=== PATIENT | male | born 1975 | race Caucasian/White ===

== ENCOUNTER 2020-02-15 20:30 | Emergency (ER) | payer MEDICARE, SELFPAY ==
[2020-02-15 20:55] VITALS: BP 148/94; PULSE 78; RESP 20; TEMP 37.1; O2SAT 98
--- NOTE | 2020-02-15 21:38 | ED.DENTAL ---
HPI - Dental/Oral General Chief complaint: Dental/Oral Stated complaint: swelling in face Source: patient and family Mode of arrival: ambulatory Limitations: no limitations History of Present Illness HPI Narrative: Pt presents with complaints of facial pain and swelling pt has toothache. Started on Amox today, but pt had facial swelling increasing. He wasnt sure why his face was swelling. He has no fevers chills or nausea, otherwise he feels fine. Complaint: tooth pain Onset (ago): day(s) Duration: constant Severity: moderate Relieving factors: prescription analgesics Context: history of dental caries and poor dental care Associated symptoms: gum swelling Treatment prior to arrival: none Related Data Home Medications Medication Instructions Recorded Confirmed amoxicillin 500 mg PO BID 02/15/20 02/15/20 glimepiride 2 mg PO DAILY 02/15/20 02/15/20 metformin 1,000 mg PO BID 02/15/20 02/15/20 metoprolol succinate 25 mg PO DAILY 02/15/20 02/15/20 morphine 30 mg PO DAILY 02/15/20 02/15/20 naproxen 500 mg PO DIRECTED PRN 02/15/20 02/15/20 simvastatin 40 mg PO DAILY 02/15/20 02/15/20 Allergies Allergy/AdvReac Type Severity Reaction Status Date / Time bee venom protein (honey bee) Allergy Unknown Verified 02/15/20 21:23 [bees] Review of Systems Review of Systems: All systems reviewed & are unremarkable except as noted in HPI and below PMFSH Past Medical History Medical History (Updated 02/15/20 @ 21:45 by Sulma Brody MD) Back pain Social History Social History (Updated 02/15/20 @ 21:46 by Sulma Brody MD) Smoking status: Current every day smoker Alcohol intake: current Alcohol use details: occasional Substance use: never Exam Const: General: no acute distress Nutritional Appearance: well nourished Orientation/consciousness: patient oriented x3 HENMT: Head: normal to inspection Mouth: Yes moist mucous membranes Teeth and gingiva: dentition normal (dental abscess, some swelling, but no spot available for drainage) Throat: posterior oropharynx normal Eyes: Conjunctivae: conjunctivae normal Pupils: Equal, round and reactive pupils present Neck: Neck: normal visual inspection Chest: Chest palpation & inspection: normal inspection of the chest Resp: Effort & Inspection: normal respiratory effort Back/Spine/Pelvis: Back: no CVA tenderness Skin: General skin exam: normal color Rashes: no rashes Neuro: General: patient oriented x3, moves all extremities and CN's II-XI intact bilaterally Speech: normal speech Gait exam (Neuro): Normal gait present Extrem: General: normal to inspection Psych: Appearance: grossly normal Mental Status: mental status grossly normal Thought content: Yes Normal thought content present Course Vital Signs Vital signs: Vital Signs Temperature 37.1 C 02/15/20 20:55 Pulse Rate 78 02/15/20 20:55 Respiratory Rate 20 02/15/20 20:55 Blood Pressure 148/94 H 02/15/20 20:55 Pulse Oximetry 98 02/15/20 20:55 Temperature 37.1 C 02/15/20 20:55 Pulse Rate 78 02/15/20 20:55 Respiratory Rate 20 02/15/20 20:55 Blood Pressure 148/94 H 02/15/20 20:55 Pulse Oximetry 98 02/15/20 20:55 MDM - Dental/Oral Differential Diagnosis Differential diagnosis: Likely dental abscess Critical Care Time Critical Care Time Critical Care Time: No Discharge Plan Discharge Clinical Impression: Dental abscess Patient Disposition: Home, Self-Care Condition: Stable Instructions: Antibiotic Form, Dental Abscess (ED) Additional Instructions: Use the [email or web address] dental kit for pain Prescriptions: No Action amoxicillin 500 mg capsule 500 mg PO BID RF: 0 morphine 30 mg tablet extended release 30 mg PO DAILY RF: 0 simvastatin 40 mg tablet 40 mg PO DAILY RF: 0 glimepiride 2 mg tablet 2 mg PO DAILY RF: 0 metformin 1,000 mg tablet 1,000 mg PO BID RF: 0 metoprolol succinate 25
== END 2020-02-15 21:44 | disposition home or self-care (01) ==
PROVIDERS: Emergency Provider Emergency Medicine
DX: K04.7 Periapical abscess without sinus (principal)
CPT/HCPCS: 99281; 99282

== ENCOUNTER 2020-03-21 12:10 | Outpatient (CLI) | payer MEDICARE, SELFPAY ==
[2020-03-21 12:58] LABS: SARS-CoV-2 Ag Negative (Negative)
== END 2020-03-21 12:11 | disposition home or self-care (01) ==
LOC: CHSLAB 12:12
PROVIDERS: PCP Family Medicine; Visit Provider Family Medicine
DX: Z20.828 Contact with and (suspected) exposure to other viral communicable diseases (principal)
CPT/HCPCS: 87426

== ENCOUNTER 2020-06-12 07:34 | Outpatient (CLI) | payer MEDICARE, SELFPAY ==
[2020-06-12 07:51] LABS: Basophils Absolute Auto 0.06 K/mm3 (0.00-0.10); Basophils Percent Auto 0.6 % (0.0-1.0); Eosinophils Absolute Auto 0.13 K/mm3 (0.02-0.50); Eosinophils Percent Auto 1.2 % (1.0-6.0); Hematocrit 46.4 % (40.0-54.0); Hemoglobin 15.8 g/dL (14.0-18.0); Immature Granulocyte Absolute 0.03 K/mm3 (0.00-0.00); Immature Granulocyte Percent A 0.3 % (0.0-0.0); Lymphocytes Absolute Auto 2.82 K/mm3 (1.10-4.50); Mean Corpuscular HGB Conc 34.1 g/dL (32.0-36.0); Mean Corpuscular Hemoglobin 30.4 pg (27.0-31.0); Mean Corpuscular Volume 89.4 fL (78.0-102.0); Mean Platelet Volume 10.7 fl (8.7-11.0); Monocytes Absolute Auto 0.64 K/mm3 (0.10-0.90); Monocytes Percent Auto 6.1 % (2.0-11.0); Neutrophils Absolute Auto 6.8 K/mm3 (1.7-7.2); Neutrophils Percent Auto 64.8 % (50.0-70.0); Platelet Count Result 202 K/mm3 (150-420); Red Blood Count 5.19 M/mm3 (4.70-6.10); White Blood Count 10.4 K/mm3 (4.8-10.8)
[2020-06-12 08:50] LABS: Alanine Aminotransferase 21 U/L (16-63); Albumin Level 4.1 g/dL (3.4-5.0); Alkaline Phosphatase 80 U/L (46-116); Anion Gap 11 mmol/L (8-16); Aspartate Amino Transferase 12 U/L (15-37); Bilirubin,Total 0.6 mg/dL (0.00-1.00); Blood Urea Nitrogen 11 mg/dL (7-18); Calcium 9.1 mg/dL (8.5-10.1); Carbon Dioxide 26 mmol/L (21-32); Chloride 104 mmol/L (98-108); Cholesterol 121 mg/dL (0-200); Estimated Glomerular Filt Rate > 60; Glucose 111 mg/dL (70-99); HDL Direct 32 mg/dL (40-60); LDL Cholesterol Calculated 47 mg/dL (<130); Osmolality Calculated 292 mOsm/kg (285-295); Potassium 4.3 mmol/L (3.5-5.1); Prostate Specific Antigen 0.3 ng/mL (< OR = 4.0); Sodium 141 mmol/L (136-145); Triglycerides 210 mg/dL (0-150)
[2020-06-12 08:55] LABS: Hemoglobin A1C 5.9 % (<5.7)
== END 2020-06-12 07:35 | disposition home or self-care (01) ==
LOC: CHSLAB 07:36
PROVIDERS: PCP Family Medicine; Visit Provider Family Medicine
DX: E78.2 Mixed hyperlipidemia (principal); I10 Essential (primary) hypertension; Z12.5 Encounter for screening for malignant neoplasm of prostate; E11.9 Type 2 diabetes mellitus without complications
CPT/HCPCS: 36415; 80053; 80061; 83036; 84153; 85025; G0103

== ENCOUNTER 2020-09-20 13:16 | Outpatient (CLI) | payer MEDICARE, SELFPAY ==
--- NOTE | ~2020-09-20 | CT_ITS ---
EXAMINATION: CT abdomen pelvis wo con EXAM DATE: 09/20/2020 13:34 INDICATION: R Flank Pain R posterior lower abd/ R sided low back pain x 1yr. TECHNIQUE: Spiral CT of the abdomen and pelvis was performed without contrast. Axial, coronal and sag ittal images were reviewed. The dose-length product (DLP) for this examination was 1493.11 mGy-cm. The exposure was tailored according to patient size (auto mA exposure control), and iterative reconst ruction (ASIR) was used as additional dose reduction technique. There is no prior study for comparis on. FINDINGS: There is no nephrolithiasis or hydronephrosis. The prostate is unremarkable. Small left g reater than right inguinal fat-containing hernias. The bladder is unremarkable. The liver, spleen, adrenal glands and pancreas are unremarkable. There are cholecystectomy clips. There is no retroper itoneal or pelvic lymphadenopathy. There is mild scattered arteriosclerotic disease. The appendix is normal. The stomach and small bowel are unremarkable. There is moderate amount of c olonic stool. No free intraperitoneal gas. The heart is normal in size. There are no pericardial or pleural effusions. The lung bases are unremarkable. There are no osteoblastic or osteolytic les ions identified. IMPRESSION: 1. No nephrolithiasis, hydronephrosis or acute intra-abdominal findings. 2. Small inguinal fat-containing hernias. Reviewed, dictated and finalized at location A.
== END 2020-09-20 13:17 | disposition home or self-care (01) ==
LOC: CHSIMG 13:18
PROVIDERS: PCP Family Medicine; Visit Provider Family Medicine
DX: R10.9 Unspecified abdominal pain (principal)
CPT/HCPCS: 74176

== ENCOUNTER 2020-11-04 21:39 | Emergency (ER) | payer MEDICARE, SELFPAY ==
[2020-11-04 21:45] VITALS: BP 151/95; PULSE 87; RESP 20; TEMP 37.3; O2SAT 97
--- NOTE | 2020-11-04 22:08 | ED.BACK ---
HPI - Back Pain/Injury General Chief Complaint: Abdominal Pain Stated Complaint: R side pain Source: patient Mode of arrival: ambulatory Limitations: no limitations History of Present Illness HPI Narrative: This is a 45-year-old gentleman that presents with some right lower back pain with no dysuria no hematuria no fever chills no saddle paresthesias no history of kidney stones has had history of a lumbar back pain and is currently on morphine and Robaxin for his back and having increased discomfort. There is no abdominal pain, no chest pain no shortness of breath no fever chills. MD elicited complaint: back pain Onset (ago): hour(s) Timing: constant Severity: moderate Quality: aching and spasming Location: right lower back Radiation: buttocks Exacerbating factors: movement and supine positioning Relieving factors: immobilization and sitting upright Context: while lifting, turning/twisting and bending Associated symptoms: denies other symptoms Related Data Home Medications Medication Instructions Recorded Confirmed amoxicillin 500 mg PO BID 02/15/20 11/04/20 metformin 1,000 mg PO BID 02/15/20 11/04/20 metoprolol succinate 25 mg PO DAILY 02/15/20 11/04/20 morphine 30 mg PO DAILY 02/15/20 11/04/20 simvastatin 40 mg PO DAILY 02/15/20 11/04/20 Allergies Allergy/AdvReac Type Severity Reaction Status Date / Time bee venom protein (honey bee) Allergy Unknown Verified 02/15/20 21:23 [bees] Review of Systems Review of Systems: All systems reviewed & are unremarkable except as noted in HPI and below PMFSH Past Medical History Medical History Back pain Social History Social History Smoking status: Current every day smoker Alcohol intake: current Substance use: never Exam Const: General: no acute distress and alert Orientation/consciousness: patient oriented x3 HENMT: Head: normal to inspection Eyes: Conjunctivae: conjunctivae normal Pupils: Equal, round and reactive pupils present Neck: Neck: normal visual inspection, no lymphadenopathy and no meningeal signs Chest: Chest palpation & inspection: normal inspection of the chest Resp: Effort & Inspection: normal respiratory effort Auscultation: clear to auscultation bilaterally Cardio: Rate: regular rate Rhythm: regular rhythm GI: GI Palp: Yes Soft to palpation : Testes: Testes normal Back/Spine/Pelvis: Back: no CVA tenderness Skin: General skin exam: normal color Rashes: no rashes Neuro: General: patient oriented x3 and moves all extremities Extrem: Other: Positive straight leg raising test on the right with L4 and 5 right paravertebral tenderness with palpation Psych: Mental Status: mental status grossly normal Affect: normal affect Course Course Emergency Course: [place] after the patient Toradol 60 mg IM along with or Benadryl 100 mg IM, patient recently had CT scan that showed no kidney stones. Critical Care Time Critical Care Time Critical Care Time: No Discharge Plan Discharge Clinical Impression: Back pain Qualifiers: Back pain location: low back pain Chronicity: chronic Back pain laterality: right Sciatica presence: with sciatica Sciatica laterality: sciatica of right side Qualified Code(s): M54.41 - Lumbago with sciatica, right side Patient Disposition: Home, Self-Care Condition: Stable Instructions: Antibiotic Form, Sciatica (ED) Additional Instructions: advised take medicine as prescribed and follow-up with primary care physician as soon as possible for further evaluation and treatment. Prescriptions: No Action amoxicillin 500 mg capsule 500 mg PO BID RF: 0 morphine 30 mg tablet extended release 30 mg PO DAILY RF: 0 simvastatin 40 mg tablet 40 mg PO DAILY RF: 0 metformin 1,000 mg tablet 1,000 mg PO BID RF: 0 metoprolol succinate 25 mg tablet extended rel
[2020-11-04] MEDS: ORPHENADRINE CITRATE 100 MG TABLET.ER PO (22:15)
[2020-11-04] MEDS: KETOROLAC (*BKC) 60 MG/2 ML VIAL IM (22:18)
[2020-11-04 22:20] VITALS: BP 151/95; PULSE 87; RESP 20; TEMP 37.3; O2SAT 97
== END 2020-11-04 22:22 | disposition home or self-care (01) ==
PROVIDERS: Emergency Provider Emergency Medicine; PCP Family Medicine
DX: M54.41 Lumbago with sciatica, right side (principal)
CPT/HCPCS: 96372; 99283; A9270; J1885

== ENCOUNTER 2021-05-10 07:47 | Outpatient (CLI) | payer MEDICARE, SELFPAY ==
[2021-05-10 08:51] LABS: Cholesterol 144 mg/dL (0-200); HDL Direct 34 mg/dL (40-60); LDL Cholesterol Calculated 59 mg/dL (<130); Prostate Specific Antigen 0.3 ng/mL (< OR = 4.0); Triglycerides 256 mg/dL (0-150)
[2021-05-10 09:57] LABS: Hemoglobin A1C 7.7 % (<5.7)
== END 2021-05-10 07:48 | disposition home or self-care (01) ==
LOC: CHSLAB 07:50
PROVIDERS: PCP Family Medicine; Visit Provider Family Medicine
DX: E11.9 Type 2 diabetes mellitus without complications (principal); Z12.5 Encounter for screening for malignant neoplasm of prostate; E78.1 Pure hyperglyceridemia
CPT/HCPCS: 36415; 80061; 83036; 84153; G0103

== ENCOUNTER 2021-07-20 13:08 | Outpatient (CLI) | payer MEDICARE, SELFPAY ==
[2021-07-20 15:40] LABS: Prostate Specific Antigen 0.3 ng/mL (< OR = 4.0)
== END 2021-07-20 13:09 | disposition home or self-care (01) ==
LOC: CHSLAB 13:12
PROVIDERS: PCP Family Medicine; Visit Provider Family Medicine
DX: Z12.5 Encounter for screening for malignant neoplasm of prostate (principal)
CPT/HCPCS: 36415; 84153; G0103

== ENCOUNTER 2021-12-12 06:59 | Outpatient (CLI) | payer MEDICARE, SELFPAY ==
[2021-12-12 08:08] LABS: Creatinine Urine 167.17 mg/dL (40-278); MALB Creatinine Ratio 7.7 mg/g (0-30); Microalbumin Urine Random < 13.0 mg/L
[2021-12-12 08:11] LABS: Hemoglobin A1C 9.3 % (<5.7)
[2021-12-12 08:40] LABS: Cholesterol 118 mg/dL (0-200); HDL Direct 35 mg/dL (40-60); LDL Cholesterol Calculated 49 mg/dL (<130); Triglycerides 168 mg/dL (0-150)
== END 2021-12-12 07:00 | disposition home or self-care (01) ==
LOC: CHSLAB 07:03
PROVIDERS: PCP Family Medicine; Visit Provider Family Medicine
DX: E78.5 Hyperlipidemia, unspecified (principal); E11.9 Type 2 diabetes mellitus without complications
CPT/HCPCS: 36415; 80061; 82043; 83036

== ENCOUNTER 2022-01-23 17:21 | Emergency (ER) | payer MEDICARE, SELFPAY ==
[2022-01-23] VITALS (17 sets, daily range): BP systolic 126–155; BP diastolic 69–88; PULSE 62–90; RESP 0–34; TEMP 36.8; O2SAT 94–100
--- NOTE | ~2022-01-23 | XR_ITS ---
EXAMINATION: XR chest 1V portable Exam Date/Time: 01/23/2022 17:40 CDT HISTORY: chest pain Comparison: 11/16/2010. RESULT: Lines, tubes, and devices: None. Lungs and pleura: Clear. Cardiomediastinal silhouette: Stable. Other: No acute osseous or upper abdominal finding. IMPRESSION: No acute cardiopulmonary process. Reviewed, dictated and finalized at location K.
--- NOTE | 2022-01-23 17:34 | ECG_ITS ---
Measurements Intervals [place] Rate: 75 P: 7 OK: 179 QRS: -45 QRSD: 117 T: -9 QT: 366 QTc: 409 Interpretive Statements SINUS RHYTHM LEFT ANTERIOR FASCICULAR BLOCK BORDERLINE T WAVE ABNORMALITY- ANTEROLAT/INF LEADS BASELINE ARTIFACT- I, III ABNORMAL ECG NO PREVIOUS ECG AVAILABLE FOR COMPARISON Electronically Signed On 01-23-2022 20:50:16 CDT by Sebastien Escobedo D.O.
[2022-01-23] MEDS: MAG HYDROX/ALUMINUM HYD/SIMETH 30 ML, PHENobarb/HYOSCY/ATROPINE/SCOP 32.4 MG, LIDOCAINE... PO (18:04)
--- NOTE | 2022-01-23 18:10 | PC.NURSE ---
PT DECLINED IV ACCESS AND MEDICATIONS AT THIS TIME, STATES IF LAB WORK DISCOVERS HE NEEDS IT, HE WILL TAKE THEM AT THAT TIME. PT DECLINES TYLENOL, STATES HIS PAIN IS ONLY A 1 AND DOES NOT WISH TO HAVE PAIN MEDICATION AT THIS TIME. PT REPORTS HE TOOK HIS MORNING 81MG ASA AND THEN CHEWED ANOTHER ONE THIS AFTERNOON. ERP WAS NOTIFIED ABOUT ASA, AND V/O TO DC ASA ADMINISTRATION. PT DID TAKE GI COCKTAIL. PT IS AWAITING LAB FOR DRAW AT THIS TIME. NAD NOTED, VSS PER MONITOR. WILL CONTINUE TO MONITOR.
[2022-01-23 18:21] LABS: Basophils Absolute Auto 0.06 K/mm3 (0.00-0.10); Basophils Percent Auto 0.7 % (0.0-1.0); Eosinophils Absolute Auto 0.13 K/mm3 (0.02-0.50); Eosinophils Percent Auto 1.6 % (1.0-6.0); Hematocrit 43.7 % (40.0-54.0); Hemoglobin 15.2 g/dL (14.0-18.0); Immature Granulocyte Absolute 0.01 K/mm3 (0.00-0.00); Immature Granulocyte Percent A 0.1 % (0.0-0.0); Lymphocytes Absolute Auto 2.43 K/mm3 (1.10-4.50); Lymphocytes Percent Auto 30.3 % (18.0-42.0); Mean Corpuscular HGB Conc 34.8 g/dL (32.0-36.0); Mean Corpuscular Hemoglobin 31.1 pg (27.0-31.0); Mean Corpuscular Volume 89.5 fL (78.0-102.0); Monocytes Absolute Auto 0.53 K/mm3 (0.10-0.90); Monocytes Percent Auto 6.6 % (2.0-11.0); Neutrophils Absolute Auto 4.9 K/mm3 (1.7-7.2); Neutrophils Percent Auto 60.7 % (50.0-70.0); Platelet Count Result 177 K/mm3 (150-420); Red Blood Count 4.88 M/mm3 (4.70-6.10); Red Cell Distribution Width 11.9 % (11.6-14.4)
--- NOTE | 2022-01-23 18:31 | PC.NURSE ---
PT IS SITTING ON STRETCHER IN EXAM ROOM AT THIS TIME. NAD NOTED. PT DENIES ANY COMPLAINTS. PT IS AWAITING LAB RESULTS AT THIS TIME. ERP IS AWARE OF PT REFUSAL OF IV AND IV MEDICATIONS. WILL CONTINUE TO MONITOR.
--- NOTE | 2022-01-23 18:37 | PC.NURSE ---
PT REPORTS NO CHANGE POST GI COCKTAIL. ERP AWARE. WILL CONTINUE TO MONITOR.
[2022-01-23 18:38] LABS: Alanine Aminotransferase 49 U/L (16-63); Albumin Level 3.6 g/dL (3.4-5.0); Alkaline Phosphatase 96 U/L (46-116); Anion Gap 6 mmol/L (8-16); Aspartate Amino Transferase 30 U/L (15-37); Bilirubin,Total 0.4 mg/dL (0.00-1.00); Blood Urea Nitrogen 11 mg/dL (7-18); Calcium 8.8 mg/dL (8.5-10.1); Carbon Dioxide 27 mmol/L (21-32); Chloride 102 mmol/L (98-108); Estimated CRCL calculation 126 ml/min; Estimated Glomerular Filt Rate > 60; Glucose 208 mg/dL (70-99); Osmolality Calculated 285 mOsm/kg (285-295); Potassium 3.7 mmol/L (3.5-5.1); Sodium 135 mmol/L (136-145); Troponin I 6.3 ng/L (0.00-60.4)
--- NOTE | 2022-01-23 18:54 | ED.CHESTPAIN ---
HPI - Chest Pain General Chief Complaint: Chest Pain Stated Complaint: chest pain Time Seen by Provider: 01/23/22 17:25 Source: patient and RN notes reviewed Mode of arrival: ambulatory Limitations: no limitations History of Present Illness MD complaint: chest pain Timing of current episode: constant Prior episodes: No Onset: during rest Pain location: left chest Pain radiation: none Severity: moderate Pain scale (0-10): 5 Quality: heaviness and dull Relieving factors: nothing Exacerbating factors: nothing Associated symptoms: nausea Treatment prior to arrival: none Related Data Home Medications Medication Instructions Recorded Confirmed metformin 1,000 mg tablet 1,000 mg PO BID 02/15/20 01/23/22 morphine 30 mg tablet,extended 30 mg PO BID 02/15/20 01/23/22 release simvastatin 40 mg tablet 40 mg PO DAILY 02/15/20 01/23/22 aspirin 81 mg tablet 81 mg PO DAILY 01/23/22 01/23/22 glimepiride 2 mg tablet 2 mg PO DAILY 01/23/22 01/23/22 metoprolol succinate 25 mg 25 mg PO DAILY 01/23/22 01/23/22 tablet,extended release 24 hr morphine 30 mg tablet,extended 15 mg PO DAILY 01/23/22 01/23/22 release naproxen 500 mg tablet 500 mg PO PRN PRN Pain 01/23/22 01/23/22 Allergies Allergy/AdvReac Type Severity Reaction Status Date / Time bee venom protein (honey bee) Allergy Unknown Verified 01/23/22 17:36 [bees] Review of Systems Review of Systems: All systems reviewed & are unremarkable except as noted in HPI and below Constitutional: Constitutional: Reports no additional constitutional complaints Eyes: Eyes: Reports no additional eye complaints ENT: Reports system reviewed and no additional complaints, except as documented Cardiovascular: Cardiovascular: Reports chest pain Respiratory: Respiratory: Reports no additional respiratory complaints Gastrointestinal: Gastrointestinal: Reports no additional gastrointestinal complaints Musculoskeletal: Musculoskeletal: Reports no additional musculoskeletal complaints Integumentary/Breasts: Skin/Breast: Reports system reviewed and no additional complaints, except as docu Neurologic: Reports system reviewed and no additional complaints, except as documented Psychiatric: Psychiatric: Reports no additional psychiatric complaints Endocrine: Endocrine: Reports no additional endocrine complaints Hematologic/Lymphatic: Hematologic/Lymphatic: Reports no additional hematologic/lymphatic complaints Allergic/Immunologic: Allergic/Immunologic: Reports no additional allergic/immunologic complaints PMFSH Past Medical History Medical History Back pain Chest pain in adult Social History Social History Smoking status: Current every day smoker Alcohol intake: current Alcohol use details: occasional Substance use: never Exam Const: General: no acute distress Nutritional Appearance: well nourished Orientation/consciousness: patient oriented x3 Limitations: no limitations HENMT: Head: normal to inspection Ears: external ears normal, TM's normal bilaterally and EAC's normal General nose exam: Normal external nose present and Normal nares present Face and sinus: normal facial exam and sinuses nontender Mouth: Yes Normal oral and palatal mucosa present and Yes moist mucous membranes Teeth and gingiva: dentition normal Throat: posterior oropharynx normal Eyes: Conjunctivae: conjunctivae normal Pupils: Equal, round and reactive pupils present EOM: EOMs intact bilaterally Neck: Neck: normal visual inspection, no lymphadenopathy and no meningeal signs Chest: Chest palpation & inspection: normal inspection of the chest Resp: Effort & Inspection: normal respiratory effort Auscultation: clear to auscultation bilaterally Cardio: Rate: regular rate Rhythm: regular rhythm GI: GI Palp: Yes Soft to palpation and No Tenderness to palpation present (G
== END 2022-01-23 19:10 | disposition home or self-care (01) ==
PROVIDERS: Emergency Provider Emergency Medicine; PCP Family Medicine
DX: R07.89 Other chest pain (principal); F17.200 Nicotine dependence, unspecified, uncomplicated
CPT/HCPCS: 36415; 71045; 80053; 84484; 85025; 93005; 99284; A9270